=== PATIENT | male | born 1980 | race Caucasian/White ===

== ENCOUNTER 2017-03-13 22:12 | Emergency (ER) | payer MEDICARE, OTHER ==
[~2017-03-13 22:12] MED LIST: NO MEDICATIONS
== END 2017-03-14 01:46 | disposition left against medical advice (07) ==
LOC: CED 22:12
DX: Z53.21 Procedure and treatment not carried out due to patient leaving prior to being seen by health care provider (principal)

== ENCOUNTER 2017-04-28 18:13 | Inpatient (IN) | payer MEDICARE, OTHER ==
[~2017-04-28] VITALS: Ht 180.3 cm; Wt 70.3 kg
--- NOTE | ~2017-04-28 | OR ---
Unit #: [id number] #: [id number] Patient: JACQUELINE JOHNS [id number] [facility]. [address] [place], [place] [address] [id number] I MR#: [id number] NAME: JACQUELINE JOHNS ROOM: 466 Date of Procedure: 04/29/2017 Admission Date: 04/28/2017 Surgeon: Slick Alvares Jr., M.D. : 1980 Attending Physician: Ruth Galvan M.D. OPERATIVE REPORT INDICATION FOR PROCEDURE The patient is a 37-year-old white male, who is a drug abuser, who presented with an infection of the posterior aspect of his left forearm. The patient states this has been there for a short period of time and was not sure that it was related to an injection from illicit drugs, but this was highly likely. He was brought to the operating room at this time for incision, drainage, and sharp excisional debridement of this abscess. He understands the procedure including the risks, including that of recurrent infection, nerve injury, and consents. PREOPERATIVE DIAGNOSIS Large abscess of the posterior left forearm. POSTOPERATIVE DIAGNOSIS Large abscess of the posterior left forearm, noting approximately an 8-cm abscess. ANESTHESIA General with LMA. PROCEDURE PERFORMED Sharp excisional debridement with incision and drainage of large abscess of the left posterior forearm. DESCRIPTION OF PROCEDURE The patient was positioned in supine position. After being anesthetized, his arm was draped across his chest and prepped and draped in routine fashion for incision, drainage, and sharp excisional debridement of this abscess. Hemostat was placed into the draining portion of the abscess, and it was tracked and opened with a #10 blade scalpel along its entire length. It was approximately 8 cm in diameter. A portion of the skin was taken from the side of each portion of the incision and discarded. Using #10 blade scalpel, the tissue was debrided at the base of the wound, and after it was completely debrided down to the deeper subcutaneous tissue and some areas to the fascia, hemostasis was achieved with Bovie cautery. The wound was irrigated with saline solution and after total hemostasis was noted, packed with saline moist dry dressings. Sterile dressings were applied externally. Estimated blood loss was less than 50 mL. The patient received less than 1000 mL crystalloid solution during the procedure. Sponges and instruments counts were correct x3. No drains were used. No complications. The patient was taken to the recovery room with stable vital signs and in satisfactory condition. Unit #: [id number] #: [id number] Patient: JACQUELINE JOHNS Dictated by... Slick Alvares Jr., M.D. JMB/ge TD: 05/08/2017 10:34 JOB #: [id number] CC: Slick Alvares Jr., M.D. OPERATIVE REPORT Page 1 of 1 X Slick Alvares MD X PROCEDURE OPERATIVE NOTE
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
[2017-04-28 21:58] LABS: BASOPHIL# 0.2 X10e3 (0-0.3); BASOPHIL% 1.5 % (0-2.5); EOSINOPHIL# 0.4 X10e3 (0-0.7); EOSINOPHIL% 2.5 % (0.0-7.0); HEMATOCRIT 44.9 % (38.0-50.0); HEMOGLOBIN 14.8 gm/dL (13.0-16.0); LYMPHOCYTE# 4.2 X10e3 (1.0-3.5); LYMPHOCYTE% 27.6 % (17.0-45.0); MEAN CELL VOLUME 86.9 FL (83-96); MEAN CORPUSCULAR HEMOGLOBIN 28.6 PG (28-34); MEAN PLATELET VOLUME 8.6 FL (6.5-11.5); MONOCYTE# 1.5 X10e3 (0-1.0); MONOCYTE% 9.8 % (3.0-12.0); NEUTROPHIL# 8.8 X10e3 (1.5-7.1); NEUTROPHIL% 58.6 % (40-75); PLATELET COUNT 353 X10e3 (140-420); RED BLOOD COUNT 5.16 X10e (3.90-5.60); RED CELL DISTRIBUTION WIDTH 14.1 % (11.0-15.5); WHITE BLOOD COUNT 15.1 X10e3 (4.0-10.5)
[2017-04-28 22:00] LABS: DIFF IND YES
[2017-04-28 22:18] LABS: ALBUMIN SERUM 3.4 g/dL (3.5-5.0); BILIRUBIN, DIRECT 0.3 mg/dL (0.0-0.2); BILIRUBIN,INDIRECT 1.1 mg/dL (0.0-0.9); BILIRUBIN,TOTAL 1.4 mg/dL (0.2-2.0); CALCIUM SERUM 8.9 mg/dL (8.4-10.2); CREATININE SERUM 0.8 mg/dL (0.6-1.4); GLOM FILT RATE Estimated 114.2 mL/min (>60); POTASSIUM 3.7 mmol/L (3.5-5.1); PROTEIN TOTAL SERUM 8.9 g/dL (6.0-8.3)
[2017-04-28 22:22] LABS: PLATELET ESTIMATE NORMAL (NORMAL)
[2017-04-28 22:23] LABS: DIFFERENTIAL COMMENT FEW AYPLYMPHS
[2017-04-29 13:32] LABS: CREATININE SERUM 0.6 mg/dL (0.6-1.4); GLOM FILT RATE Estimated 128.5 mL/min (>60); POTASSIUM 3.5 mmol/L (3.5-5.1)
[2017-04-29 13:34] LABS: CALCIUM SERUM 6.7 mg/dL (8.4-10.2)
[2017-04-30 04:12] LABS: HEMATOCRIT 38.2 % (38.0-50.0); MEAN CELL VOLUME 87.2 FL (83-96); MEAN CORPUSCULAR HEMOGLOBIN 28.9 PG (28-34); MEAN CORPUSCULAR HGB CONC 33.1 g/dL (30-36); MEAN PLATELET VOLUME 9.3 FL (6.5-11.5); RED BLOOD COUNT 4.38 X10e (3.90-5.60); RED CELL DISTRIBUTION WIDTH 13.7 % (11.0-15.5); WHITE BLOOD COUNT 10.5 X10e3 (4.0-10.5)
[2017-04-30 04:21] LABS: HEMOGLOBIN 12.6 gm/dL (13.0-16.0)
[2017-04-30 04:38] LABS: ALBUMIN SERUM 2.4 g/dL (3.5-5.0); BUN/CREATININE RATIO 11.42; CREATININE SERUM 0.7 mg/dL (0.6-1.4); GLOM FILT RATE Estimated 120.6 mL/min (>60); POTASSIUM 4.1 mmol/L (3.5-5.1); PROTEIN TOTAL SERUM 6.5 g/dL (6.0-8.3)
[2017-04-30 15:35] LABS: BASOPHIL% 0.2 % (0-2.5); EOSINOPHIL# 0.5 X10e3 (0-0.7); EOSINOPHIL% 5.6 % (0.0-7.0); HEMATOCRIT 38.6 % (38.0-50.0); HEMOGLOBIN 12.6 gm/dL (13.0-16.0); LYMPHOCYTE# 2.7 X10e3 (1.0-3.5); MEAN CELL VOLUME 88.2 FL (83-96); MEAN CORPUSCULAR HEMOGLOBIN 28.9 PG (28-34); MEAN CORPUSCULAR HGB CONC 32.8 g/dL (30-36); MEAN PLATELET VOLUME 7.8 FL (6.5-11.5); MONOCYTE# 0.9 X10e3 (0-1.0); MONOCYTE% 10.6 % (3.0-12.0); NEUTROPHIL# 4.6 X10e3 (1.5-7.1); NEUTROPHIL% 52.6 % (40-75); PLATELET COUNT 304 X10e3 (140-420); RED BLOOD COUNT 4.38 X10e (3.90-5.60); WHITE BLOOD COUNT 8.8 X10e3 (4.0-10.5)
[2017-04-30 15:43] LABS: DIFF IND NO
[2017-04-30 16:00] LABS: ALBUMIN SERUM 2.6 g/dL (3.5-5.0); BILIRUBIN,TOTAL 0.8 mg/dL (0.2-2.0); BUN/CREATININE RATIO 7.5; CREATININE SERUM 0.8 mg/dL (0.6-1.4); GLOM FILT RATE Estimated 114.2 mL/min (>60); POTASSIUM 4.2 mmol/L (3.5-5.1); PROTEIN TOTAL SERUM 6.9 g/dL (6.0-8.3)
[2017-05-01 03:13] LABS: BASOPHIL% 0.2 % (0-2.5); EOSINOPHIL# 0.5 X10e3 (0-0.7); EOSINOPHIL% 5.4 % (0.0-7.0); HEMATOCRIT 39.7 % (38.0-50.0); HEMOGLOBIN 13.1 gm/dL (13.0-16.0); LYMPHOCYTE# 2.8 X10e3 (1.0-3.5); MEAN CELL VOLUME 88.2 FL (83-96); MEAN CORPUSCULAR HEMOGLOBIN 29.2 PG (28-34); MEAN CORPUSCULAR HGB CONC 33.1 g/dL (30-36); MONOCYTE% 10.4 % (3.0-12.0); PLATELET COUNT 329 X10e3 (140-420); WHITE BLOOD COUNT 9.2 X10e3 (4.0-10.5)
[2017-05-01 03:18] LABS: DIFF IND NO
[2017-05-01 03:43] LABS: ALBUMIN SERUM 2.8 g/dL (3.5-5.0); BILIRUBIN,TOTAL 0.6 mg/dL (0.2-2.0); BUN/CREATININE RATIO 7.5; CALCIUM SERUM 8.5 mg/dL (8.4-10.2); CREATININE SERUM 0.8 mg/dL (0.6-1.4); GLOM FILT RATE Estimated 114.2 mL/min (>60); POTASSIUM 3.6 mmol/L (3.5-5.1); PROTEIN TOTAL SERUM 7.5 g/dL (6.0-8.3)
[2017-05-01] MEDS ORDERED: HYDROCODON-ACE1 EAC9 PO (11:56)
[2017-05-01] MEDS ORDERED: LEVAQUIN750 M1 PO (11:58)
[2017-05-01] MEDS ORDERED: CLEOCIN HCL300 M1 PO (11:58)
[2017-05-06 07:45] LABS: HA AB IGM (HEPPAN) Nonreactive (()); HB CORE AB IGM (HEPPAN) Reactive (Nonreactive); HB S AG (HEPPAN) Reactive (Nonreactive); HEP C AB (HEPPAN) Reactive (Nonreactive)
== END 2017-05-01 12:15 | disposition home health service (06) | DRG 854 ==
LOC: CED 18:13 → CEDOF 23:30 → C4C 23:30 → CED 23:34 → CEDOF 23:34 → C4C 04-29 02:32
PROVIDERS: Emergency Medicine; Internal Medicine; Surgery
PROC: 0JBF0ZZ Excision of Left Upper Arm Subcutaneous Tissue and Fascia, Open Approach (ICD-10-PCS; principal; 2017-04-29 12:30)
DX: A41.9 Sepsis, unspecified organism (principal); L02.414 Cutaneous abscess of left upper limb; E44.1 Mild protein-calorie malnutrition; E87.1 Hypo-osmolality and hyponatremia; L03.114 Cellulitis of left upper limb; X99.8XXA Assault by other sharp object, initial encounter; R74.0 Nonspecific elevation of levels of transaminase and lactic acid dehydrogenase [LDH]; F19.10 Other psychoactive substance abuse, uncomplicated; R73.9 Hyperglycemia, unspecified; Z71.51 Drug abuse counseling and surveillance of drug abuser; Z68.21 Body mass index [BMI] 21.0-21.9, adult
CPT/HCPCS: 36415; 80048; 80053; 80074; 80076; 80202; 83605; 85025; 85027; 87040; 87070; 87075; 87205; 87522; 87806; 96361; 96374; 99284; J0696; J1170; J1885; J2250; J2270; J2405; J2543; J3010; J3370